=== PATIENT | male | born 1985 | race Caucasian/White ===

== ENCOUNTER 2020-11-05 07:59 | Emergency (ER) | payer BC, OTHER ==
[~2020-11-05] VITALS: Ht 188 cm; Wt 95.4 kg
[2020-11-05] MEDS ORDERED: IV RINGERS,LACTATED 500ML 1,000 ML IV ONE ×2 (08:15→08:45)
[2020-11-05] MEDS ORDERED: ONDANSETRON PF 4 MG/2 ML VIAL. IVP ONE (08:15)
[2020-11-05 08:53] LABS: BASO # 0.1 x10^3/uL (0.0-0.2); BASO % 1 % (0-3); EOS # 0.2 x10^3/uL (0.0-0.7); EOS % 2 % (0-3); HEMATOCRIT 45.3 % (39.0-53.0); HEMOGLOBIN 15.7 g/dL (13.0-17.5); LYMPH # 1.3 x10^3/uL (1.0-4.8); LYMPH % 11 % (24-48); MEAN CORPUSCULAR HEMOGLOBIN 32 pg (25-35); MEAN CORPUSCULAR HGB CONC 35 g/dL (31-37); MEAN CORPUSCULAR VOLUME 93 fL (79-100); MONO # 0.8 x10^3/uL (0.0-1.1); MONO % 6 % (0-9); NEUT # 9.8 x10^3/uL (1.8-7.7); NEUT % 81 % (31-73); PLATELET COUNT 228 x10^3/uL (140-400); RED BLOOD COUNT 4.86 x10^6/uL (4.30-5.70); WHITE BLOOD COUNT 12.1 x10^3/uL (4.0-11.0)
[2020-11-05 09:12] LABS: CALCIUM 9.5 mg/dL (8.5-10.1); CREATININE 1.1 mg/dL (0.7-1.3); GFR 76.6
[2020-11-05 09:15] LABS: ALBUMIN 4.6 g/dL (3.4-5.0); ALBUMIN/GLOBULIN RATIO 1.4 (1.0-1.7); MAGNESIUM 1.6 mg/dL (1.8-2.4); TOTAL BILIRUBIN 1.1 mg/dL (0.2-1.0); TOTAL PROTEIN 7.8 g/dL (6.4-8.2)
--- NOTE | 2020-11-05 09:38 | PHYS DOC ---
Past Medical History Additional Past Medical Histor: "iny heart murmor" Past Surgical History: Tonsillectomy, Other Additional Past Surgical Histo: discectomy and laminectomy 04/2020,LLE "faby" Smoking Status: Never Smoker Alcohol Use: Occasionally Drug Use: None General Adult EDM: Chief Complaint: FLU SYMPTOM HPI: HPI: 35-year-old male presents to the emergency department complaining of a symptoms including nausea, vomiting, diarrhea for the past 1 day along with sore throat, congestion, mild shortness of breath. He reports that he is currently on a road trip from [facility] to [place] and is on his way back currently. He denies any leg swelling, chest pain. He reports his abdominal pain is cramping related to his diarrhea but he has no further pain. He reports a mild subjective fever over the last several days measured around 99 Fahrenheit. Review of Systems: Review of Systems: Constitutional: Admits to fever and chills. Eyes: Denies change in vision, pain. HENT: See congestion and sore throat. Respiratory: Denies cough, admits to shortness of breath. Cardiovascular: Denies chest pain or edema. GI: Admits abdominal cramping, nausea, diarrhea, vomiting. : Denies change in urination, dysuria. Musculoskeletal: Denies extremity pain, or trauma. Skin: Denies rash, skin change. Neurologic: Denies headache, focal weakness. Psychiatric: Denies depression or anxiety. All other systems reviewed as negative except for what was mentioned in the HPI. Heart Score: C/O Chest Pain: No Family History: Family History: Noncontributory Current Medications: Current Medications Medications (Trade) Dose Ordered Sig/Luis Carlos Start Time Stop Time Status Last Admin Dose Admin Ondansetron HCl (Zofran) 4 mg 1X ONCE 11/05/20 08:15 11/05/20 08:19 DC 11/05/20 08:15 4 MG Ringer's Solution 1,000 ml @ 1,000 mls/hr 1X ONCE 11/05/20 08:45 11/05/20 09:44 Allergies: Allergies: Allergies Coded Allergies Type Severity Reaction Last Updated Verified Penicillins Allergy Intermediate 11/05/20 Yes amoxicillin Allergy Intermediate 11/05/20 Yes cefaclor Allergy Intermediate 11/05/20 Yes clavulanic acid Allergy Intermediate 11/05/20 Yes Physical Exam: PE: Constitutional: No acute distress, non-toxic appearance. HENT: Atraumatic, bilateral external ears normal, nose normal. Eyes: PERRLA, EOMI, conjunctiva normal, no discharge. Neck: Normal range of motion, supple, no stridor. Cardiovascular: Heart rate regular rhythm. 2+ radial pulses Lungs & Thorax: No respiratory distress, symmetrical expansion. Bilateral breath sounds clear to auscultation Abdomen: Soft, no tenderness Skin: Warm, dry. Extremities: No tenderness, no cyanosis, ROM intact, no edema. Neurologic: Alert and oriented X 3, normal motor function, normal sensory function, no focal deficits noted. Non ataxic gait. GCS 15. Psychologic: Affect normal, judgment normal, mood normal. Current Patient Data: Labs: Laboratory Tests Test 11/05/20 08:21 11/05/20 08:25 11/05/20 08:51 White Blood Count 12.1 x10^3/uL (4.0-11.0) Red Blood Count 4.86 x10^6/uL (4.30-5.70) Hemoglobin 15.7 g/dL (13.0-17.5) Hematocrit 45.3 % (39.0-53.0) Mean Corpuscular Volume 93 fL (79-100) Mean Corpuscular Hemoglobin 32 pg (25-35) Mean Corpuscular Hemoglobin Concent 35 g/dL (31-37) Red Cell Distribution Width 13.0 % (11.5-14.5) Platelet Count 228 x10^3/uL (140-400) Neutrophils (%) (Auto) 81 % (31-73) Lymphocytes (%) (Auto) 11 % (24-48) Monocytes (%) (Auto) 6 % (0-9) Eosinophils (%) (Auto) 2 % (0-3) Basophils (%) (Auto) 1 % (0-3) Neutrophils # (Auto) 9.8 x10^3/uL (1.8-7.7) Lymphocytes # (Auto) 1.3 x10^3/uL (1.0-4.8) Monocytes # (Auto) 0.8 x10^3/uL (0.0-1.1) Eosinophils # (Auto) 0.2 x10^3/uL (0.0-0.7) Basophils # (Auto) 0.1 x10^3/uL (0.0-0.2) SARS-CoV-2 Antigen (Rapid) Negative (NEGATIVE) Sodium Level 143 mmol/L (136-145) Potassium Level 4.0 mmol/L (3.5-5.1) Chloride Level 107 mmol/L (98-107) Carbon Dioxide Level 26 mmol/L (21-32) Anion Gap 10 (6-14) Blood Urea Nitrogen 12 mg/dL (8-26) Creatinine 1.1 mg/dL (0.7-1.3) Estimated GFR (Cockcroft-Gault) 76.6 BUN/Creatinine Ratio 11 (6-20) Glucose Level 127 mg/dL (70-99) Calcium Level 9.5 mg/dL (8.5-10.1) Magnesium Level 1.6 mg/dL (1.8-2.4) Total Bilirubin 1.1 mg/dL (0.2-1.0) Aspartate Amino Transf (AST/SGOT) 21 U/L (15-37) Alanine Aminotransferase (ALT/SGPT) 35 U/L (16-63) Alkaline Phosphatase 77 U/L (46-116) Total Protein 7.8 g/dL (6.4-8.2) Albumin 4.6 g/dL (3.4-5.0) Albumin/Globulin Ratio 1.4 (1.0-1.7) Lipase 233 U/L (73-393) Vital Signs: Vital Signs Date Time Temp Pulse Resp B/P (MAP) Pulse Ox O2 Delivery O2 Flow Rate FiO2 11/05/20 08:05 98.4 83 18 148/87 100 Room Air 98.4 Radiology/Procedures: Radiology/Procedures: No airspace disease, infiltrates or consolidations, lung rivera clear. No pneumothorax or pleural effusion. Cardiac silhouette within normal limits. No widening of mediastinum. No obvious free air seen. Impression: normal CXR. Interpreted by me, Jerrell Oliveira D.O. Course & Med Decision Making: Course & Med Decision Making Labs and imaging are unremarkable. His Covid test was negative today. He was counseled on quarantine until his PCR test returns tomorrow or the next day. He otherwise is feeling better upon his discharge examination and feels comfortable to go home. Return precautions were discussed with the patient who understands when to return to the emergency department. We will give him a short supply of Zofran to take at home. He otherwise has no further complaints My Orders - DEENAJERRELL M DO Procedure Category Date Status Time Iv Ringers,Lactated PHA 11/05/20 Complete 500ml (Iv Lactated R 08:15 Ondansetron Pf PHA 11/05/20 Complete (Zofran) 08:15 Sars Cov2 (Marlyn) LAB 11/05/20 In Process 08:15 Sars Antigen Sheree Rapid LAB 11/05/20 Complete 08:15 Iv Ringers,Lactated PHA 11/05/20 Complete 500ml (Iv Lactated R 08:45 Cbc W Autod[employer] LAB 11/05/20 Complete 08:40 Magnesium LAB 11/05/20 Complete 08:40 Comprehensive LAB 11/05/20 Complete Metabolic Panel 08:40 Lipase LAB 11/05/20 Complete 08:40 Chest Ap Only RAD 11/05/20 Resulted 09:51 Departure Departure Impression: Primary Impression: Viral syndrome Disposition: HOME / SELF CARE / HOMELESS Condition: IMPROVED Referrals: UNKNOWN PCP NAME (PCP) Patient Instructions: Viral Gastroenteritis, [id number] Additional Instructions: You were seen in the emergency department for nausea and vomiting. You could have a viral illness which should resolve in the next few days to a week. Drink at least 6-8 glasses of water per day to help stay hydrated if you can tolerate drinking water. You may also supplement with gatorade. Please avoid alcohol while you are ill. You should return to the ED if you develop abdominal pain, fever > 100.3, black/bloody stools, black/bloody vomiting, cannot eat or drink without vomiting, or have any other new or concerning symptoms. You were seen in the emergency department and your health condition was deemed not to require admission to the hospital. It is important to realize that we can only evaluate you during the time that you are in her department. Occasionally health conditions can worsen upon leaving the emergency department. If this were to happen, please return to and allow us the opportunity to reevaluate you. It is a pleasure to take care of your health needs. Return to the ER if your symptoms worsen, do not improve, or if you develop additional symptoms that are concerning to you Scripts Ondansetron Hcl (ONDANSETRON HCL) 4 Mg Tablet 4 MG PO BID PRN for NAUSEA/VOMITING for 7 Days, #14 TAB Prov: JERRELL OLIVEIRA DO 11/05/20 JERRELL OLIVEIRA DO Nov 05, 2020 09:38
--- NOTE | 2020-11-05 10:27 | RAD ---
EXAMINATION: XR CHEST 1V CLINICAL HISTORY: Shortness of breath EXAM DATE/TIME: 11/05/2020 9:47 AM COMPARISON: None FINDINGS: Lines, Tubes, and Devices: None. Cardiomediastinal Silhouette: Within normal limits. Lungs and Pleura: No evidence of focal airspace consolidation or pleural effusion. Pulmonary vasculat ure unremarkable. Bones and Soft Tissues: No acute osseous abnormality. IMPRESSION: No evidence of acute cardiopulmonary abnormality. Electronically signed by: Jose Diaz DO (11/05/2020 10:25 AM) [id number]
[2020-11-05] MEDS ORDERED: ONDA-84 PO (10:32)
[2020-11-05 10:34] VITALS: BP 143/83
--- NOTE | 2020-11-05 16:14 | NUR ---
IP: Informed pt of negative covid test. Pt verbalized understanding.
== END 2020-11-05 10:55 | disposition home or self-care (01) ==
LOC: ER 07:59
DX: B34.9 Viral infection, unspecified (principal); Z20.822 Contact with and (suspected) exposure to COVID-19; Z88.0 Allergy status to penicillin; Z88.1 Allergy status to other antibiotic agents; Z88.8 Allergy status to other drugs, medicaments and biological substances
CPT/HCPCS: 36415; 71045; 80053; 83690; 83735; 85025; 87426; 96361; 96374; 99285; J2405; J7120; U0003; U0005